=== PATIENT | male | born 1960 | race African-American/Black ===

== ENCOUNTER 2016-08-28 21:44 | Observation (INO) | payer OTHER ==
--- NOTE | ~2016-08-28 | CR72 ---
[facility] A Service of [facility] & [facility] RADIOLOGY TEXT RESULTS PATIENT: SHAMA BALDERAS LOCATION: A 319-01 : 60 UNIT #: [id number] AGE: [address]: Cm Lucia MD SEX: M ORDER DR: [id number] [facility] [address]. [place], [place] [address] [id number] MR#: [id number] #: [id number] NAME: SHAMA BALDERAS : 1960 SEX: M STUDY DATE/TIME: 08/28/2016 21:34 UNIT: [address] ROOM: 319 STUDY DESCRIPTION: CR Chest Single View Portable Attending Physician: Cm Lucia M.D. Referring Physician: Radha Self Referred Ordering Physician: Rosario Quinteros M.D. Primary Care Physician: Vj Manrique M.D. MEDICAL IMAGING REPORT This report is preliminary unless electronic signature is present EXAM Portable chest, 08/28/2016. COMPARISON 09/02/2015 HISTORY Cough, congestion, shortness of air, and dizziness starting today. FINDINGS A portable view of the chest is obtained. The heart size and vascularity are normal, and the lungs are clear. The tri-lead pacemaker is stable. The bones are normal. IMPRESSION No active disease. Dictated by... Cipriano Hill M.D. THIS IS AN ELECTRONICALLY VERIFIED REPORT Cipriano Hill M.D. at 08/29/2016 2:00 PM ALBERT/verito TD: 08/29/2016 10:15 JOB #: [id number] MEDICAL IMAGING REPORT Page 1 of 1 COPY
--- NOTE | ~2016-08-28 | EKG ---
PATIENT: SHAMA BALDERAS UNIT #: [id number] Ventricular Rate: 62 BPM Atrial Rate: 62 BPM P-R Interval: 190 ms QRS Duration: 120 ms Q-T Interval: 420 ms QTC Calculation(Bezet): 426 ms P [place]: 56 degrees Calculated R [place]: -47 degrees Calculated T [place]: -97 degrees Diagnosis Line: Atrial-sensed ventricular-paced rhythm with Diagnosis Line: occasional AV dual-paced complexes Diagnosis Line: Abnormal ECG Diagnosis Line: When compared with ECG of 02-SEP-2015 07:12, Diagnosis Line: Vent. rate has decreased BY 61 BPM Diagnosis Line: Confirmed by CAROLE VALENZUELA MD ([id number]) on 08/30/2016 Diagnosis Line: 4:04:37 PM INTERPRETING MD: BIANCA SANCHEZ
--- NOTE | ~2016-08-28 | DS ---
Unit #: [id number] #: [id number] Patient: SHAMA BALDERAS [id number] [facility] [address] [facility]. [place], [place] [address] [id number] MR#: [id number] NAME: SHAMA BALDERAS ROOM: 319 Age: 56 Sex: M Admission Date: 08/29/2016 : 1960 Discharge Date: 08/30/2016 Attending Physician: Cm Lucia M.D. Referring Physician: Self Referral-Refer Use Only Primary Care Physician: Vj Manrique M.D. DISCHARGE SUMMARY ADMIT DIAGNOSES Presyncope. DISCHARGE DIAGNOSES 1. Presyncope. 2. Ischemic cardiomyopathy, ejection fraction 25%. 3. Status post implantable cardioverter defibrillator. 4. Coronary artery disease, status post percutaneous coronary intervention and stents, distal and mid right coronary artery June 2015. 5. Diabetes. 6. Hypertension. 7. Dyslipidemia. 8. Reformed alcohol and illicit drug use. 9. History of hepatitis C, treated. 10. Nicotine abuse, using electronic cigarettes. 11. Obstructive sleep apnea, not treated. HOSPITAL COURSE Patient was admitted feeling weak and lightheaded and diaphoretic. He called 911 and they took him to the hospital. He was admitted, and blood pressures were monitored as well as labs. On 08/29, his orthostatics showed 125 supine, 114 sitting and 113 standing. Today, his blood pressures are 134 supine, 130 sitting and 110 standing. He was asymptomatic during this time. He underwent overnight oximetry, which was unrevealing in that the recording was suboptimal. His AICD was interrogated. No events were noted, although the alerts were said to be on the second page but no second page was found. [facility] records were obtained and reviewed. Echocardiogram on 03/31/16 was reviewed which showed LV size 5.6, wall thickness 0.9, 1+ AI, 1+ TR, no comments on the mitral valve. The patient was discharged to home, without further therapy. DIAGNOSTIC STUDIES LABORATORY: Fasting glucose 114, creatinine 1.0, potassium 4.0. Liver enzymes were normal. TSH was 1.07. Point of care troponin was normal. Hemoglobin was 12.9, white blood count 5.1, platelet count 180,000. Unit #: [id number] #: [id number] Patient: SHAMA BALDERAS Urinalysis was negative with the exception of urobilinogen. DISCHARGE MEDICATIONS 1. Metformin 500 mg daily. 2. Coreg 25 mg b.i.d. 3. Norvasc. 4. Amlodipine/benazepril 10/40 daily. 5. Lipitor 20 mg daily. 6. Aspirin 81 mg daily. 7. Hydrocodone one tab b.i.d., 7.5 mg. 8. Tizanidine 2 mg b.i.d. FOLLOWUP 1. Patient recommended to follow up with his leader writer in about four weeks. 2. Will ask Dr. Ribeiro to see regarding sleep apnea therapy testing setup before the patient is discharged. 3. May change his BRANDON inhibitor to Entresto. Long discussion with the patient regarding the benefits of sleep therapy and his situation. Forty-five minutes spent with this discharge. Dictated by... Willem Zuñiga/rayne TD: 08/31/2016 06:40 JOB #: [id number] DISCHARGE SUMMARY Page 1 of 1 X Cm Lucia MD X DISCHARGE SUMMARY
--- NOTE | ~2016-08-28 | EKG ---
PATIENT: SHAMA BALDERAS UNIT #: [id number] Ventricular Rate: 60 BPM Atrial Rate: 60 BPM P-R Interval: 118 ms QRS Duration: 178 ms Q-T Interval: 486 ms QTC Calculation(Bezet): 486 ms P [place]: -12 degrees Calculated R [place]: -130 degrees Calculated T [place]: 35 degrees Diagnosis Line: AV sequential or dual chamber electronic pacemaker Diagnosis Line: Diagnosis Line: Confirmed by CAROLE VALENZUELA MD ([id number]) on 08/30/2016 Diagnosis Line: 4:05:54 PM INTERPRETING MD: BIANCA SANCHEZ
--- NOTE | ~2016-08-28 | HP ---
Unit #: [id number] #: [id number] Patient: SHAMA BALDERAS [id number] [facility] [address] [facility]. [place], [place] [address] [id number] I MR#: [id number] NAME: SHAMA BALDERAS ROOM: 319 Age: 56 Sex: M Admission Date: 08/29/2016 : 1960 Attending Physician: Cm Lucia M.D. Referring Physician: Self Referral-Refer Use Only Primary Care Physician: Vj Manrique M.D. HISTORY AND PHYSICAL HISTORY OF PRESENT ILLNESS This is a 56-year-old -[place] male who has a known history of ischemic cardiomyopathy, who has an AICD defibrillator. He presented to the emergency room with a presyncopal episode. Patient back around 2009 had a PCI and stents placed to the distal and mid RCA and in June of last year patent had a cardiac arrest. At the time he had another heart catheterization which found that the stents were still patent. There was no other significant stenosis. His LVEF was found to be 20%. There was also mild to moderate aortic regurgitation. There is not a 2D echo that has been documented to evaluate during this dictation. During that time period he did have a defibrillator placed down at [facility]. Over the last year he does follow up with Dr. King. He saw him about three months ago, was doing fairly well. He did say that he had his defibrillator adjusted about a month and a half ago because he was having some muscular jerking, twitching and also felt like he had the hiccups and he has not had those issues since the last interrogation and adjustment. Patient states he was sitting in a chair, just relaxing yesterday afternoon and then started just to feel really weak, lightheaded. He said he got diaphoretic, short of breath, just felt like he was going to pass out. He said he lay down awhile but just was restless. He said those symptoms persisted. He friend, who was at his home, called 911; by the time they arrived he was feeling a little better. They took his blood pressure and told him that it was elevated. They said his blood sugar was all right. The symptoms subsided but he still remained weak and a little lightheaded. He was brought into the emergency room for further evaluation. In the emergency room the patient's blood pressure was 147/69 and his heart rate 70, respirations 18, temperature 98.5, O2 sat was 97% on room air. His chest x-ray revealed that his lungs were clear. The patient's EKG showed atrial sensed and ventricular paced rhythm. The patient says he has been compliant with his medications and followup with his php mysql developer. He has been admitted for further evaluation and management. PAST MEDICAL HISTORY 1. History of ischemic cardiomyopathy; has an AICD implantation that was 06/2015 at [facility], [facility]. 2. History of coronary artery disease. In 2009 had status post PCI and stents placed in the mid and distal RCA. 3. In 06/2015 he had a cardiac arrest. Heart catheterization performed at that time revealed the stents were patent, no other significant stenosis. Unit #: [id number] #: [id number] Patient: SHAMA BALDERAS 4. LVEF was found to be 20% on the heart catheterization. Also he had mild to moderate aortic regurgitation. 5. Hypertension. 6. Hyperlipidemia. 7. Diabetes mellitus type 2. 8. History of seizures. 9. He has a history of hepatitis C but was treated. On his last checks it was in remission. 10. Reformed alcohol and illicit drug abuse. He said he quit doing drugs and drinking alcohol about 20 years ago. 11. Nicotine abuse. He still uses an e-cigarette. PAST SURGICAL HISTORY 1. AICD implantation 06/2015. 2. Rib surgery in . 3. Lipoma surgery. 4. Left ankle surgery. HOME MEDICATIONS 1. Amlodipine 10 mg p.o. daily. 2. Lotensin 40 mg p.o. daily. 3. Lipitor 20 mg p.o. daily. 4. Carvedilol 25 mg p.o. b.i.d. 5. Zanaflex 2 mg p.o. b.i.d. 6. Lortab 7.5/325 mg one tablet p.o. b.i.d. p.r.n. 7. Aspirin 81 mg p.o. daily. ALLERGIES Codeine. SOCIAL HISTORY Patient lives with his girlfriend. He is on disability. He does still continue to use an e-cigarette. He quit drinking heavily and doing street drugs over 20 years ago; currently no illicit drug abuse. FAMILY HISTORY No known coronary artery disease in his immediate family members. REVIEW OF SYSTEMS CONSTITUTIONAL: Denies fever or chills. No recent weight gain or weight loss. HEENT: Denies headache. Complains of dizziness. No visual changes. No lymphadenopathy or thyromegaly. CARDIOVASCULAR: Denies chest pain but had some pressure with the episode. Denies palpitations. No increased lower extremity edema. PULMONARY: Increased shortness of breath with episode. Denies paroxysmal nocturnal dyspnea and orthopnea. GASTROINTESTINAL: Had some nausea with the episode, denies vomiting, diarrhea or abdominal pain. NEUROLOGICAL: No focal weakness. Complained of dizziness, near syncope. PHYSICAL EXAMINATION GENERAL: On exam Mr. Balderas is a 56-year-old -[place] male in no acute respiratory distress. He is awake, alert and oriented. VITAL SIGNS: Blood pressure is 115/73, heart rate is 70, respirations 16, temperature 97.9, O2 sats 95% on room air. NECK: Trachea midline. No thyromegaly or lymphadenopathy. Normal Unit #: [id number] #: [id number] Patient: SHAMA BALDERAS carotid upstrokes. No jugular venous distention. HEART: S1, S2. Regular rate and rhythm. Soft systolic murmur in the left sternal border and over aortic region. LUNGS: Bilaterally clear throughout. Slightly diminished. ABDOMEN: Soft, nontender. EXTREMITIES: Pedal pulses are palpable. No pedal edema. DIAGNOSTIC STUDIES LABORATORY DATA: Glucose is 116, BUN 15, creatinine 1.0, eGFR is 97.1, sodium is 135, potassium 4.1, chloride 103, CO2 25, calcium is 9.5, magnesium is 1.9, total protein 7.7, albumin 4.8, bilirubin total of 0.7, AST is 23, ALT is 16, alkaline phosphatase is 39, BNP is 16, TSH is 1.07, WBC is 6.1, hemoglobin 12.5, hematocrit 37.6 and platelets 171. Initial cardiac enzymes: CK-MB is 1.1, troponin less than 0.05 and CK-MB 4.0, troponin less than 0.05. INR is 1.5. Latest troponins are 0.05. His BNP was 16. IMAGING: Chest x-ray shows no active disease. Lungs are clear. CARDIOVASCULAR: EKG shows atrial sensed ventricular paced beat. IMPRESSION 1. Near syncope. 2. History of cardiac arrest in 06/2015. 3. Ischemic cardiomyopathy, left ventricular ejection fraction of 20% on a cardiac catheterization 06/2015. 4. History of percutaneous coronary intervention and stents to the mid and distal right coronary artery 2009, found patent on the last catheterization in 06/2015. 5. Diabetes mellitus type 2. 6. Hyperlipidemia. 7. Hypertension. 8. History of hepatitis C which has been treated. 9. Reformed alcohol and illicit drug abuse. 10. Nicotine abuse. PLAN 1. The patient's device will be interrogated to see if he has had any arrhythmia during his episode. According to the patient, he said this episode felt similar to the one that he had before he had his cardiac arrest last year. 2. Will obtain records from Dr. King from [facility] to see what his latest LVEF is and to evaluate. 3. Obtain orthostatic vital signs to evaluate for any orthostasis. 4. On exam there are no signs or symptoms of acute congestive heart failure or unstable angina. 5. Continue to reinforce CHF education. 6. Continue the patient on his beta namita, his statin, ARB. The patient is on an ARB for his cardiomyopathy. 7. Will obtain the echo that was done here 06/2015 and evaluate. Could not pull it up on the [facility]. 8. Encouraged patient to completely quit nicotine abuse with e-cigarette smoking cessation information provided to patient. 9. On exam there are no signs of symptoms of acute congestive heart failure or unstable angina. His cardiac enzymes have remained negative. EKG does not show anything acute. The patient currently is not on a diuretic so will evaluate before discharge to see if he needs to be. He did get a dose of IV Lasix on admission. Patient Unit #: [id number] #: [id number] Patient: SHAMA BALDERAS states that he had been on Lasix in the past. Further recommendations pending per Dr. Lombardi. Dictated by Judie Herrera, Alex.P.R.N. for Dex Lombardi M.D. SALLY/olga TD: 08/29/2016 13:29 JOB #: [id number] CC: Bruno King M.D. HISTORY AND PHYSICAL Page 1 of 1 X Judie Herrera APRN X HISTORY AND PHYSICAL
[~2016-08-28 21:44] MED LIST: FLOMAX0.4 MG PO; HCTZ PO; IBUPROFEN PO; LISINOPRIL PO; LORTAB 10/500 T1 TAB PO; PEGASUS SUBQ; PHENERGAN PO; TRAZODONE PO; TYLOX 5/500 CAP1 CAP PO; ZOLOFT PO; [UNRECOGNIZED DRUG - OTHER] PO
[2016-08-28 21:49] LABS: POC - TROPONIN <0.05 ng/mL (<=0.05)
[2016-08-28 22:08] LABS: BASOPHIL% 0.8 % (0-2.5); EOSINOPHIL# 0.1 X10e3 (0-0.7); EOSINOPHIL% 1.6 % (0.0-7.0); HEMATOCRIT 37.6 % (38.0-50.0); HEMOGLOBIN 12.5 gm/dL (13.0-16.0); LYMPHOCYTE% 16.6 % (17.0-45.0); MEAN CELL VOLUME 88.3 FL (83-96); MEAN CORPUSCULAR HEMOGLOBIN 29.4 PG (28-34); MEAN CORPUSCULAR HGB CONC 33.3 g/dL (30-36); MEAN PLATELET VOLUME 9.7 FL (6.5-11.5); MONOCYTE# 0.4 X10e3 (0-1.0); MONOCYTE% 6.2 % (3.0-12.0); NEUTROPHIL# 4.5 X10e3 (1.5-7.1); NEUTROPHIL% 74.8 % (40-75); PLATELET COUNT 171 X10e3 (140-420); RED BLOOD COUNT 4.26 X10e (3.90-5.60); RED CELL DISTRIBUTION WIDTH 12.4 % (11.0-15.5); WHITE BLOOD COUNT 6.1 X10e3 (4.0-10.5)
[2016-08-28 22:09] LABS: DIFF IND NO
[2016-08-28 22:19] LABS: INR 1.1; PARTIAL THROMBOPLASTIN TIME 25.7 SECONDS (23.5-31.3); PROTHROMBIN TIME (PATIENT) 11.1 SECONDS (9.6-11.5)
[2016-08-28 22:30] LABS: ALBUMIN SERUM 4.8 g/dL (3.5-5.0); BILIRUBIN, DIRECT 0.1 mg/dL (0.0-0.2); BILIRUBIN,INDIRECT 0.6 mg/dL (0.0-0.9); BILIRUBIN,TOTAL 0.7 mg/dL (0.2-2.0); BUN/CREATININE RATIO 11.53; CALCIUM SERUM 9.6 mg/dL (8.4-10.2); CREATININE SERUM 1.3 mg/dL (0.6-1.4); GLOM FILT RATE Estimated 70.7 mL/min (>60); POTASSIUM 4.1 mmol/L (3.5-5.1); PROTEIN TOTAL SERUM 7.7 g/dL (6.0-8.3)
[2016-08-29] MEDS ORDERED: ASPIRIN81 MG PO (00:56)
[2016-08-29] MEDS ORDERED: HYDROCODON-ACE1 EAC9 PO (00:58)
[2016-08-29] MEDS ORDERED: TIZANIDINE HCL2 M1 PO (00:59)
[2016-08-29] MEDS ORDERED: CARVEDILOL25 MG PO (00:59)
[2016-08-29] MEDS ORDERED: METFORMIN HCL500 M3 PO (01:00)
[2016-08-29] MEDS ORDERED: LIPITOR20 MG PO ×2 (01:01→01:04)
[2016-08-29] MEDS ORDERED: AMLODIPINE-BEN1 EAC5 PO (01:04)
[2016-08-29 07:23] LABS: CALCIUM SERUM 9.5 mg/dL (8.4-10.2); GLOM FILT RATE Estimated 97.1 mL/min (>60); MAGNESIUM 1.9 mg/dL (1.6-3.0); POTASSIUM 4.1 mmol/L (3.5-5.1)
[2016-08-29 08:10] LABS: URINE APPEARANCE CLEAR; URINE BILIRUBIN NEG (NEG); URINE BLOOD NEG (NEG); URINE COLOR YELLOW; URINE GLUCOSE NEG (NEG); URINE KETONE NEG (NEG); URINE LEUKOCYTE ESTERASE NEG (NEG); URINE NITRATE NEG (NEG); URINE PROTEIN NEG (NEG); URINE SPECIFIC GRAVITY 1.022 (1.003-1.035)
[2016-08-30 05:51] LABS: HEMATOCRIT 39.5 % (38.0-50.0); HEMOGLOBIN 12.9 gm/dL (13.0-16.0); MEAN CELL VOLUME 88.5 FL (83-96); MEAN CORPUSCULAR HEMOGLOBIN 28.8 PG (28-34); MEAN CORPUSCULAR HGB CONC 32.6 g/dL (30-36); MEAN PLATELET VOLUME 10.4 FL (6.5-11.5); RED BLOOD COUNT 4.47 X10e (3.90-5.60); RED CELL DISTRIBUTION WIDTH 12.3 % (11.0-15.5); WHITE BLOOD COUNT 5.1 X10e3 (4.0-10.5)
[2016-08-30 06:33] LABS: CALCIUM SERUM 9.6 mg/dL (8.4-10.2); GLOM FILT RATE Estimated 97.1 mL/min (>60)
== END 2016-08-30 16:33 | disposition home or self-care (01) | DRG 312 ==
LOC: CED 21:44 → CEDOF 23:55 → C3A PCU 08-29 02:17
PROVIDERS: Emergency Medicine
DX: R55 Syncope and collapse (principal); I25.5 Ischemic cardiomyopathy; Z95.810 Presence of automatic (implantable) cardiac defibrillator; I25.10 Atherosclerotic heart disease of native coronary artery without angina pectoris; Z95.5 Presence of coronary angioplasty implant and graft; E78.5 Hyperlipidemia, unspecified; E11.9 Type 2 diabetes mellitus without complications; G47.33 Obstructive sleep apnea (adult) (pediatric); I35.1 Nonrheumatic aortic (valve) insufficiency; Z86.19 Personal history of other infectious and parasitic diseases; Z86.74 Personal history of sudden cardiac arrest; F17.290 Nicotine dependence, other tobacco product, uncomplicated; Z88.5 Allergy status to narcotic agent; Z79.82 Long term (current) use of aspirin
CPT/HCPCS: 36415; 71010; 80048; 80076; 81003; 82553; 82947; 83735; 83880; 84443; 84484; 85025; 85027; 85610; 85730; 93005; 99285; G0378; J1650; J1815; J1940

== ENCOUNTER → 2016-12-09 | Outpatient (CLI) | payer OTHER ==
[~2016-12-09] MED LIST changes: +AMLODIPINE-BEN1 EAC5 PO; +ASPIRIN81 MG PO; +CARVEDILOL25 MG PO; +HYDROCODON-ACE1 EAC9 PO; +LIPITOR20 MG PO; +METFORMIN HCL500 M3 PO; +TIZANIDINE HCL2 M1 PO
[2016-12-09 15:59] LABS: CALCIUM SERUM 9.6 mg/dL (8.4-10.2); CREATININE SERUM 1.1 mg/dL (0.6-1.4); GLOM FILT RATE Estimated 86.5 mL/min (>60); MAGNESIUM 1.9 mg/dL (1.6-3.0); POTASSIUM 3.9 mmol/L (3.5-5.1)
== END | disposition home or self-care (01) ==
LOC: CLAB 15:12
DX: I50.22 Chronic systolic (congestive) heart failure (principal)
CPT/HCPCS: 36415; 80048; 83735